=== PATIENT | female | born 1945 | race Caucasian/White ===

== ENCOUNTER 2021-11-29 05:52 | Day surgery (SDC) | payer OTHER ==
[2021-11-28 09:56] LABS: Potassium 3.8 mmol/L (3.5-5.1)
[2021-11-28 10:07] LABS: Absolute Lymphocytes (CBC) 1.1 K/uL (0.7-4.9)
[2021-11-28 10:13] LABS: Hematocrit 41.8 % (36.0-45.0); Lymphocytes % 32.6 % (15.3-44.8); MPV 8.7 fL (7.6-11.3); RBC Red Blood Cell Count 3.78 M/uL (3.86-4.86)
[2021-11-28 11:08] LABS: Blood Morphology Comment NOTED (NOT SEEN); Platelet Estimate ADEQ; White Blood Cell Scan OK (OK)
[2021-11-28 11:09] LABS: Anisocytosis 2+; Macrocytosis 2+
[2021-11-29] MEDS ORDERED: Ringers Lactate 1,000 ML IV ONE (06:11)
[2021-11-29] MEDS ORDERED: CEFAZOLIN/NS 1gm 1 GM/50 ML BAG ONE (06:11)
[2021-11-29] MEDS ORDERED: LIDOCAINE 1% MPF 5 ML VIAL ONE (06:15)
[2021-11-29] MEDS ORDERED: dexAMETHasone 4 MG/ML VIAL ONE (06:15)
[2021-11-29] MEDS ORDERED: FENTANYL CITR 100 MCG/2 ML ONE (06:15)
[2021-11-29] MEDS ORDERED: MIDAZOLAM HCL 2 MG/2 ML INJ ONE (06:15)
[2021-11-29] MEDS ORDERED: ROPLVACAINE HCL 40 ML ONE (06:16)
[2021-11-29] MEDS ORDERED: propofoL 200 MG/20 ML VIAL IV ONE ×2 (07:10→08:15)
[2021-11-29] MEDS ORDERED: LIDOCAINE 2% MPF 5 ML VIAL ONE (07:10)
[2021-11-29] MEDS ORDERED: ALBUTEROL 2.5 MG/3 ML NEB SOL ONE (07:11)
[2021-11-29] MEDS ORDERED: KETOROLAC 30 MG/ML INJ ONE (07:43)
--- NOTE | 2021-11-29 09:50 | RAD REPORT ---
EXAM DESCRIPTION: RAD - Wrist Left 2 View - 11/29/2021 9:32 am FINDINGS: There were 14 portable C-arm views submitted from a fluoroscopic assisted placement of fra cture fixation hardware. No suspicious or unexpected finding. Fluoro time was 1.0 minutes with a 1.13 mGy cumulative dose.
--- NOTE | 2021-11-29 10:23 | OP ---
Date of Procedure: 11/29/2021 Surgeon: Tomás Abdul MD Preoperative Diagnosis: Left displaced intra-articular distal radius fracture with 2 intra-articular pieces. Postoperative Diagnosis: Left displaced intra-articular distal radius fracture with 2 intra-articula r pieces. Procedure: Left open reduction and internal fixation using the [place] volar plating system of dis danyell radius fracture with fixation of intra-articular fragments. Estimated Blood Loss: Less than 10 cc. Complications: There were no complications. Pathology Specimens: No pathology specimens sent. Indication For Operation: Ms. Jain is a 76-year-old female, who unfortunately fell injuring her le ft upper extremity. She came to see me in my office in a splint. She had original x-rays, which dem onstrated what appeared to be consistent with a volar Garcia fracture with additional intra-articular displacement. Given her age, initially thought possibly we could treat this closed in a cast. Perez saul, it had been 2 weeks since time of injury and we performed followup x-rays which demonstrate this is a true volar Garcia and she has had significant displacement of the carpus as well as volar and p roximally obviously an unstable fracture fragment even for 76-year-old. Therefore, risks, benefits, and alternatives to different methods of treating this have been discussed with her. She states she understands things as presented and wished to proceed. Description Of Procedure: The patient was taken to the operating room and placed in supine position. General anesthesia was obtained by staff. Following this, well-padded tourniquet was placed on sup erior left arm. The left upper extremity was then prepped and draped in usual sterile fashion for th e procedure. Following this, this was then elevated, but not exsanguinated. Tourniquet was raised. A standard volar approach of the incision was then taken down carefully through skin only. Meticulo us hemostasis being maintained using bipolar electrocautery. This leads to the flexor carpi radialis , which was then exposed. The flexor carpi radialis was then just moved gently radialward and the sh eath was then exploited. Here we again found post fracture changes including some fibrotic tissue, h owever, no overt callus. Care was taken to avoid injury to the flexor pollicis longus tendon and mus [place] as it was then removed gently ulnarward to protect the median nerve. This leads down to the pron ator quadratus, which was somewhat disrupted and significant amount of scarring. However, it is trina kirti off the volar aspect of the radius exposing the fracture fragment. After this, traction on the f ingers as well as pressure dorsally appeared to reduce the fracture quite well. Incision was then ma de to place the plate. The plate was placed slightly more proximally than normal to allow for better buttressing effect of the Y portion of the plate. Otherwise, this was placed in standard fashion. It does appear to hold in near anatomic alignment, both the radial styloid fragment as well as the vo lar fragment and the wrist is back out to length. The wound was irrigated and the skin was closed us ing nylon sutures. Patient was placed in a well-padded sterile dressing as well as a volar splint. She was awakened and taken to recovery room in good condition. There were no complications. /PINA Voice ID: [id number] Report ID: [id number]
[2021-11-29 12:29] VITALS: BP 116/62; TEMP 97.2; O2SAT 98
== END 2021-11-29 09:57 | disposition home or self-care (01) ==
LOC: OR 05:52
PROVIDERS: ATTEND Orthopaedic Surgery
PROC: 0PSJ04Z Reposition Left Radius with Internal Fixation Device, Open Approach (ICD-10-PCS; principal; 2021-11-29 07:30)
DX: S52.572A Other intraarticular fracture of lower end of left radius, initial encounter for closed fracture (principal); Z20.822 Contact with and (suspected) exposure to COVID-19
CPT/HCPCS: 93005; 85025; 80048; 36415; 73100; 25608; U0003; J2704 ×2; J1100; J2250; J3010; J2795; J0690; J7120